=== PATIENT | female | born 1955 | race African-American/Black ===

== ENCOUNTER 2024-03-07 06:05 | Inpatient (IN) | payer OTHER ==
[~2024-03-07] VITALS: Ht 170.2 cm; Wt 94.2 kg
[2024-03-07] VITALS (9 sets, daily range): BP systolic 106–112; BP diastolic 58–66; PULSE 61–79; RESP 12–18; TEMP 97.6–97.9; O2SAT 97–100
[~2024-03-07 06:05] MED LIST: ACYC400T16 PO; ALBU0.084 IN; ALBUAER3 IN; COBA5000 SL; DIAZ-681 PO; FER325T PO; FURO20TA3 PO; GABA-1308 PO; HYDR-4798 PO; LOSA-535 PO; METO-158 PO; MULT-1018 OR; NITR0.4S29 SL; OMEP-448 PO; POTA-220 PO; SIMV40TA18 PO; TIZA4TAB9 PO; TOPI100T29 PO; WARF-115 PO
[2024-03-07] MEDS: ceFAZolin 2 GM/D5W50ml 0 ML IV ONE (06:19)
[2024-03-07] MEDS ORDERED: MAGNESIUM SULFATE 1GM/100ML 100 ML IV ONE (06:46)
[2024-03-07] MEDS ORDERED: LIDOCAINE 4MG/ML IV SOLN 500 ML IV ONE (06:46)
[2024-03-07] MEDS ORDERED: LIDOCAINE 2%HCL (LOCAL ANESTH.) INJ 10ml MDV ONE (07:00)
[2024-03-07] MEDS ORDERED: fentaNYL CITRATE 100 MCG/2 ML VL ONE (07:05)
[2024-03-07] MEDS ORDERED: KETAMINE 50mg/ML 1ml syringe ONE (07:05)
[2024-03-07] MEDS ORDERED: PROPOFOL 10 MG/ML 20 ML IV ONE ×2 (07:06→09:35)
[2024-03-07] MEDS ORDERED: GLYCOPYRROLATE 0.2 MG/ML 1ML VIAL ONE (07:06)
[2024-03-07] MEDS ORDERED: ROCURONIUM 10MG/ML 10ML VIAL IV ONE (07:06)
[2024-03-07] MEDS ORDERED: LIDOCAINE 1% INJ PF 5ML AMP ONE (07:09)
[2024-03-07] MEDS ORDERED: ONDANSETRON HCL 4 MG/2 ML VIAL ONE (07:09)
[2024-03-07] MEDS ORDERED: DexAMETHasone SOD PHOS 10MG/1ML VIAL INJ ONE (07:09)
[2024-03-07] MEDS: ACETAMINOPHEN IV 100 ML IV ONE (07:44)
[2024-03-07] MEDS: ceFAZolin 2 GM/D5W50ml 50 ML IV ONE (07:44)
[2024-03-07] MEDS: oxyCODONE ER 10 MG TAB PO ONE ×2 (07:45→07:50)
[2024-03-07] MEDS: GABAPENTIN 400 MG CAP ONE (07:46)
[2024-03-07] MEDS ORDERED: SODIUM CHLORIDE LOCK 10 ML ONE (07:48)
[2024-03-07] MEDS ORDERED: PHENYLEPHRINE HCL 10 MG/ML VL ONE (07:48)
[2024-03-07] MEDS: GABAPENTIN 400 MG CAP PO ONE (07:50)
[2024-03-07] MEDS: ACETAMINOPHEN IV 1000 MG/100ML (10MG/ML) IV ONE ×2 (07:50→12:30)
[2024-03-07] MEDS ORDERED: TRANEXAMIC ACID 10 ML ONE ×2 (08:45→09:45)
[2024-03-07] MEDS ORDERED: METOCLOPRAMIDE HCL 5MG/ml INJ 2ml VIAL ONE (08:53)
[2024-03-07] MEDS: levoFLOXacin 750MG 150 ML IV ONE (09:00)
[2024-03-07] MEDS ORDERED: LIDOCAINE 2% TOPICAL JELLY 5 ML URJT TOP ONE (09:50)
[2024-03-07] MEDS: BACITRACIN TOP OINT 1 UD PKG TOP ONE (10:05)
[2024-03-07] MEDS ORDERED: HYDROcodone-ACET 10/325MG TAB PO PRN (10:15)
[2024-03-07] MEDS ORDERED: ONDANSETRON HCL 4 MG/2 ML VIAL IV PRN ×2 (10:15→10:45)
[2024-03-07] MEDS ORDERED: MORPHINE SULFATE INJ 2 MG/ml SYRG IV PRN (10:15)
[2024-03-07] MEDS ORDERED: D5W/SOD CHLO 0.9% 1,000 ML IV SCH (10:15)
[2024-03-07] MEDS ORDERED: NITROGLYCERIN 0.4 MG SL TAB SL PRN (10:15)
[2024-03-07] MEDS ORDERED: ACETAMINOPHEN 325 MG TAB PO PRN (10:15)
[2024-03-07] MEDS ORDERED: ceFAZolin 1GM/50ML 50 ML IV SCH ×3 (10:15→14:00)
[2024-03-07] MEDS ORDERED: NITROGLYCERIN 0.4 MG SL TAB SL SCH (10:30)
[2024-03-07] MEDS ORDERED: ePHEDrine SULFATE 50 MG/ML AMP IV PRN (10:45)
[2024-03-07] MEDS ORDERED: FLUMAZENIL 0.1 MG/ML INJ 10ML MDV IV PRN (10:45)
[2024-03-07] MEDS ORDERED: hydrALAZINE HCL 20 MG/ML VL IV PRN (10:45)
[2024-03-07] MEDS ORDERED: NALOXONE HCL 0.4 MG/ML VIAL IV PRN (10:45)
[2024-03-07] MEDS ORDERED: LABETALOL HCL 5 MG/ML 4ML SYRINGE IV PRN (10:45)
[2024-03-07] MEDS ORDERED: oxyCODONE HCL 5MG TAB PO PRN (10:45)
[2024-03-07] MEDS ORDERED: HYDROmorphone HCL 2 MG/ML VL/or syr IV PRN (10:45)
[2024-03-07] MEDS ORDERED: fentaNYL CITRATE 100 MCG/2 ML VL IV PRN (10:45)
[2024-03-07] MEDS: LOSARTAN POTASSIUM 50 MG TAB PO SCH (14:00)
[2024-03-07] MEDS ORDERED: ALBUTEROL SULF 2.5 MG/0.5ML(0.5%) NEB SOLN NEB PRN (14:45)
[2024-03-07] MEDS: CYCLOBENZAPRINE HCL 10 MG TAB PO SCH (14:53)
[2024-03-07] MEDS: SORE THROAT SPRAY 6OZ BOTTLE MT PRN (17:50)
[2024-03-07] MEDS: ceFAZolin 1GM/50ML 50 ML IV SCH (17:50)
[2024-03-07] MEDS ORDERED: ALBUTEROL SULFATE 0.083% IN SCH (18:00)
[2024-03-07] MEDS: FUROSEMIDE 40 MG TAB PO SCH (18:37)
[2024-03-07] MEDS: MORPHINE SULFATE INJ 2 MG/ml SYRG IV PRN (20:44)
[2024-03-07] MEDS: ALBUTEROL SULF 2.5 MG/0.5ML(0.5%) NEB SOLN NEB SCH (21:58)
[2024-03-07] MEDS: DOCUSATE SOD 100 MG CAP PO SCH (22:00)
[2024-03-07] MEDS: GABAPENTIN 100 MG CAP PO SCH (22:00)
[2024-03-07] MEDS ORDERED: FUROSEMIDE 20 MG TAB PO SCH (22:00)
[2024-03-07] MEDS: TOPIRAMATE 100 MG TAB PO SCH (22:00)
[2024-03-07] MEDS: ACYCLOVIR 400 MG TAB PO SCH (22:00)
[2024-03-08] VITALS (12 sets, daily range): BP systolic 97–120; BP diastolic 47–59; PULSE 63–122; RESP 14–19; TEMP 97.7–98.4; O2SAT 95–100
[2024-03-08 06:56] LABS: Basophils # (auto) 0 10 ^3/uL (0-0.2); Basophils % (auto) 0.1 % (0.0-2.0); Eosinophils # (auto) 0 10 ^3/uL (0-0.8); Hematocrit 32.4 % (36.0-46.0); Hemoglobin 10.6 g/dL (12.2-16.2); Lymphocytes # (auto) 1.2 10 ^3/uL (0.4-5.4); Lymphocytes % (auto) 16.5 % (10.0-50.0); Mean Corpuscular Hemoglobin 29.7 pg (28.0-32.0); Mean Corpuscular Hgb Conc. 32.7 g/dL (32.0-36.0); Mean Corpuscular Volume 90.6 fL (80.0-100.0); Monocytes # (auto) 0.8 10 ^3/uL (0-1.3); Monocytes % (auto) 10.9 % (0.0-12.0); Neutrophils # (auto) 5.3 10 ^3/uL (1.6-8.6); Neutrophils % (auto) 72.5 % (37.0-80.0); Red Blood Cells 3.57 10^6/uL (4.0-5.20); Red Cell Distribution Width 14.5 % (11.8-14.3); White Blood Cell 7.2 10^3/uL (4.4-10.8)
[2024-03-08 07:09] LABS: Anion Gap 4 (5-15); Calcium 9.3 mg/dL (8.5-10.1); Carbon Dioxide 28 mmol/L (20-30); Chloride 109 mmol/L (98-107); Potassium 3.8 mmol/L (3.5-5.1); Sodium 141 mmol/L (136-145)
[2024-03-08 07:15] LABS: BUN/Creatinine Ratio 15.2 (10.0-20.0); Blood Urea Nitrogen 12 mg/dL (9-23); Glucose 87 mg/dL (74-106)
[2024-03-08] MEDS ORDERED: METOPROLOL TARTRATE 50 MG TAB PO SCH (10:00)
[2024-03-08] MEDS: METOPROLOL TARTRATE 50 MG TAB PO SCH (10:57)
[2024-03-08] MEDS: THROAT LOZENGES(CEPASTAT) MT PRN (16:32)
[2024-03-09] VITALS (12 sets, daily range): BP systolic 92–113; BP diastolic 43–66; PULSE 72–97; RESP 16–18; TEMP 98–98.9; O2SAT 93–98
[2024-03-09] MEDS ORDERED: POTASSIUM CHL 20 Meq TABLET PO SCH (22:00)
[2024-03-09] MEDS: POTASSIUM CHL 20 Meq TABLET PO SCH (22:26)
[2024-03-10] VITALS (10 sets, daily range): BP systolic 95–111; BP diastolic 50–64; PULSE 63–78; RESP 16–18; TEMP 36.6; O2SAT 91–100
[2024-03-10 06:26] LABS: Basophils # (auto) 0 10 ^3/uL (0-0.2); Basophils % (auto) 0.7 % (0.0-2.0); Eosinophils # (auto) 0 10 ^3/uL (0-0.8); Eosinophils % (auto) 0.6 % (0.0-7.0); Hemoglobin 10.8 g/dL (12.2-16.2); Lymphocytes # (auto) 1.7 10 ^3/uL (0.4-5.4); Lymphocytes % (auto) 31.1 % (10.0-50.0); Mean Corpuscular Hemoglobin 29.5 pg (28.0-32.0); Mean Corpuscular Hgb Conc. 32.7 g/dL (32.0-36.0); Mean Corpuscular Volume 90.3 fL (80.0-100.0); Monocytes # (auto) 0.7 10 ^3/uL (0-1.3); Monocytes % (auto) 12.2 % (0.0-12.0); Neutrophils # (auto) 3.1 10 ^3/uL (1.6-8.6); Neutrophils % (auto) 55.4 % (37.0-80.0); Nucleated Red Blood Cells % 0.1 %; Red Blood Cells 3.66 10^6/uL (4.0-5.20); Red Cell Distribution Width 14.7 % (11.8-14.3); White Blood Cell 5.6 10^3/uL (4.4-10.8)
[2024-03-10] MEDS: FUROSEMIDE 20 MG TAB PO SCH (06:30)
[2024-03-10 06:39] LABS: Chloride 107 mmol/L (98-107); Potassium 3.4 mmol/L (3.5-5.1); Sodium 140 mmol/L (136-145)
[2024-03-10 06:40] LABS: Anion Gap 6 (5-15); Carbon Dioxide 27 mmol/L (20-30)
[2024-03-10 06:46] LABS: BUN/Creatinine Ratio 10.4 (10.0-20.0); Blood Urea Nitrogen 8 mg/dL (9-23); Glucose 88 mg/dL (74-106)
[2024-03-10] MEDS ORDERED: HYDR-4798 PO (12:32)
[2024-03-10] MEDS ORDERED: DOCU-265 PO (12:32)
[2024-03-10] MEDS ORDERED: CYCL-611 PO (12:32)
== END 2024-03-10 18:24 | disposition home or self-care (01) | DRG 473 ==
LOC: SUR 06:05 → TELE 10:17 → TELE-WESTW 12:49
PROVIDERS: ADMIT Orthopaedic Surgery; ATTEND Orthopaedic Surgery
PROC: 0RB30ZZ Excision of Cervical Vertebral Disc, Open Approach (ICD-10-PCS; 2024-03-07)
PROC: 01N10ZZ Release Cervical Nerve, Open Approach (ICD-10-PCS; 2024-03-07)
PROC: 00NW0ZZ Release Cervical Spinal Cord, Open Approach (ICD-10-PCS; 2024-03-07)
PROC: 4A11X4G Monitoring of Peripheral Nervous Electrical Activity, Intraoperative, External Approach (ICD-10-PCS; 2024-03-07)
PROC: 0RG20A0 Fusion of 2 or more Cervical Vertebral Joints with Interbody Fusion Device, Anterior Approach, Anterior Column, Open Approach (ICD-10-PCS; principal; 2024-03-07 07:53)
DX: M48.02 Spinal stenosis, cervical region (principal); D63.8 Anemia in other chronic diseases classified elsewhere; I35.9 Nonrheumatic aortic valve disorder, unspecified; J44.9 Chronic obstructive pulmonary disease, unspecified; G89.29 Other chronic pain; M54.50 Low back pain, unspecified; F41.9 Anxiety disorder, unspecified; E78.00 Pure hypercholesterolemia, unspecified; G62.9 Polyneuropathy, unspecified; Z79.899 Other long term (current) drug therapy; Z79.891 Long term (current) use of opiate analgesic; Z95.2 Presence of prosthetic heart valve; Z98.84 Bariatric surgery status; Z90.49 Acquired absence of other specified parts of digestive tract; Z79.01 Long term (current) use of anticoagulants
CPT/HCPCS: 36415; 72040; 76000; 80048; 85025; 86850; 86900; 86901; 93306; 94640; 97110; 97116; 97163; 97530; G0378; J0131; J1100; J2001; J2405; J2704